=== PATIENT | male | born 1995 | race Caucasian/White ===

== ENCOUNTER 2019-04-30 21:55 | Emergency (ER) | payer BC ==
[~2019-04-30] VITALS: Ht 182.9 cm; Wt 106.8 kg
[2019-04-30 22:03] VITALS: BP 138/83; TEMP 98.1
[2019-05-01 01:00] VITALS: PULSE 77
== END 2019-05-01 01:00 | disposition home or self-care (01) ==
LOC: COL.ER 21:55
DX: S90.32XA Contusion of left foot, initial encounter (principal); F41.9 Anxiety disorder, unspecified; V03.10XA Pedestrian on foot injured in collision with car, pick-up truck or van in traffic accident, initial encounter; Y92.410 Unspecified street and highway as the place of occurrence of the external cause
CPT/HCPCS: Q4045